=== PATIENT | male | born 2000 | race Caucasian/White ===

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

== ENCOUNTER 2019-05-20 20:24 | Emergency (ER) | payer MEDICAID, SELFPAY ==
[2019-05-20 20:31] VITALS: BP 162/70; PULSE 75; RESP 19; TEMP 36.6; O2SAT 100
--- NOTE | 2019-05-20 20:33 | ED.GENADUL_ITS ---
Discharge Plan Disposition Patient Disposition: HOME Condition: Stable Discharge Details Chief Complaint: Chest Pain Clinical Impression: Biliary colic Primary Care Provider: Kem Brown V ED Provider: Cuco Alegre Discharge Instructions Instructions: Biliary Colic (ED) Additional Instructions: Return if you have a fever, persistent vomiting, or any other acute concerns. As we discussed have ordered an outpatient ultrasound of the right upper quadrant of your abdomen for tomorrow. Please follow-up with [facility] as you have planned. Avoid fatty, fried foods and observe a bland diet. Medical Decision Making This is an otherwise healthy 18-year-old male presents with 2 weeks of intermittent episodes of postprandial epigastric pain and vomiting. He is not had fever or change to bowel movements. His exam is reassuring with mild epigastric tenderness. Differential diagnosis includes gastritis, biliary colic. Patient IV access established, referred for laboratory testing. Patient CBC is unremarkable, he does have mild elevation of AST to 39, ALT to 71, lipase is normal as is total bili. His history is concerning for biliary colic, I will order an outpatient follow-up ultrasound for the patient, he will observe a bland diet. I discussed with him indications to seek emergent reevaluation. He does have follow-up with his primary at [place]. Lab Data Lab results reviewed: Yes I reviewed the patient's lab results. Labs: Laboratory Results - last 24 hr 05/20/19 05/20/19 20:45 20:45 WBC 6.02 RBC 5.13 Hgb 15.4 Hct 43.9 MCV 85.6 MCH 30.0 MCHC 35.1 RDW 13.2 Plt Count 298 MPV 8.9 Immature Gran % 0.2 Neutrophils % 59.9 Lymphocytes % 25.9 Monocytes % 12.6 Eosinophils % 1.2 Basophils % 0.2 Absolute Neutrophils 3.61 Absolute Lymphocytes 1.56 Absolute Monocytes 0.76 H Absolute Eosinophils 0.07 Absolute Basophils 0.01 Sodium 141 Potassium 4.0 Chloride 104 Carbon Dioxide 30.2 Anion Gap 6.8 BUN 13 Creatinine 1.10 Estimated GFR/1.73 m2 >= 60.00 Glucose 88 Calcium 8.6 Total Bilirubin 0.2 AST 39 H ALT 71 H Alkaline Phosphatase 114 Total Protein 7.6 Albumin 4.2 Lipase 101 ECG Data Attestation: I personally reviewed and interpreted this ECG (s) as follows: Interpretation: Normal sinus rhythm, rate of 77, QRS is narrow, no ST segment elevation, QTc 389. HPI General Mode of arrival: ambulatory . Date/Time Provider Initiated Documentation: 05/20/19 20:30 . Limitations to Documentation: no limitations . Information obtained by: patient . History of Present Illness 18 year old M presents to the emergency department with the chief complaint of Intermittent abdominal pain and vomiting over 2 weeks, postprandial, described as mild, Quality is described as constant, and is localized to the abdomen. Patient reports no radiation. Patient started experiencing this week(s) and it has been intermittent. No relieving factors improve symptom(s), No exacerbating factors reported . Patient notes denies fever/chills. Patient did receive the following treatments prior to arrival, none Related Data Allergies Allergy/AdvReac Type Severity Reaction Status Date / Time No Known Allergies Allergy Unverified 05/20/19 20:35 General CAYLA: 4 Review of Systems Narrative: No fever. Denies shortness of breath. No recent travel. Otherwise healthy young man. 6 systems reviewed and otherwise negative [facility] Social History Smoking/Tobacco Use Status: Current every day Tobacco Type: cigarettes Alcohol Intake: current Alcohol Intake frequency: holidays/special occasions only Drug use: Never Substance use type: does not use Do you feel safe at home: Yes Do you feel safe in your relationship?: Yes Exam Narrative Exam Narrative: GEN: awake, alert, oriented 3. Pleasant, well groomed, interactive. HEAD: Normocephalic, atraumatic ENT: Mucous membranes moist, oropharynx unremarkable, External ear exam unremarkable EYES: PERRL, EOMI NECK: Full ROM, no GORDO, no menigismus CHEST/RESP: Nontender, clear to auscultation bilateral, no wheeze/rhonchi/rales CARDIOVASCULAR: RRR, no murmur, rub sincere. 2+ Rad pulse bilateral ABDOMEN: Soft, minimally tender in the epigastrium without rebound or guarding, no mass. +Bowel sounds EXT: Full ROM, no edema, no rash Neuro: Grossly normal neurologic exam, conversant, interactive. Psych: Speech fluent, thoughts congruent, affect normal
[2019-05-20 20:37] VITALS: RESP 20
[2019-05-20 21:02] LABS: Abs Immature Grans 0.01 k/cumm (0.0-0.09); Absolute Basophil Count 0.01 k/cumm (0.0-0.2); Absolute Eosinophil Count 0.07 k/cumm (0.0-0.7); Absolute Lymphocyte Count 1.56 k/cumm (1.2-3.4); Absolute Monocyte Count 0.76 k/cumm (0.11-0.7); Absolute Neutrophil Count 3.61 k/cumm (1.2-6.7); Basophils % 0.2; Eosinophils % 1.2; HCT 43.9 % (40.0-50.0); HGB 15.4 g/dL (13.5-17.5); Immature Grans % 0.2 %; Lymphocytes % 25.9; Mean Corp. HGB Concentration 35.1 g/dL (32.0-36.0); Mean Corpuscular Volume 85.6 fL (80-95); Mean Platelet Volume 8.9 fL (8.0-11.0); Monocytes % 12.6; Neutrophils % 59.9; Platelet Count 298 x1000/uL (130-400); RBC 5.13 m/cumm (4.50-6.00); RBC Distribution Width 13.2 % (11.8-14.1); White Blood Cell Count 6.02 k/cumm (4.4-10.8)
[2019-05-20 21:08] LABS: ALT 71 U/L (16-63); AST 39 U/L (15-37); Albumin 4.2 g/dL (3.4-5.0); Alkaline Phosphatase 114 U/L (46-116); Anion Gap 6.8 mmol/L (3-11); BUN 13 mg/dL (7-18); Bilirubin, Total 0.2 mg/dL (0.2-1.0); CO2 30.2 mmol/L (21.0-32.0); Calcium 8.6 mg/dL (8.5-10.1); Chloride 104 mmol/L (98-107); Glucose 88 mg/dL (74-106); Lipase 101 U/L (73-393); Sodium 141 mmol/L (136-145); Total Protein 7.6 g/dL (6.4-8.2)
[2019-05-20 21:26] VITALS: BP 130/65; PULSE 82; RESP 16; O2SAT 96
== END 2019-05-20 21:30 | disposition home or self-care (01) ==
PROVIDERS: Emergency Provider Emergency Medicine; PCP Physician Assistant Medical
DX: K80.50 Calculus of bile duct without cholangitis or cholecystitis without obstruction (principal)
CPT/HCPCS: 36415; 80053; 83690; 93005; 99284; 85025; 93010

== ENCOUNTER 2019-05-21 13:55 | Outpatient (CLI) | payer MEDICAID, SELFPAY ==
--- NOTE | 2019-05-21 15:26 | DI.US_ITS ---
EXAM: US ABDOMEN CLINICAL HISTORY: POST PRANDIAL PAIN TECHNIQUE: Ultrasound abdomen performed using standard protocol. COMPARISON: No exams were available for comparison FINDINGS: LIVER: Increased echogenicity consistent with fatty infiltration. Hepatopetal flow through the mary l vein. GALLBLADDER: No evidence of cholelithiasis. No evidence of wall thickening. No pericholecystic fluid identified. KIDNEYS: Kidneys are symmetric in size. No evidence of renal calculi. No evidence of hydronephrosis. No renal mass or cyst identified. BILIARY SYSTEM: Common bile duct measures 3 mm. No intrahepatic biliary ductal dilation. CELIS'S SIGN: Negative. PANCREAS: Obscured due to overlying bowel. SPLEEN: Not enlarged. ABDOMINAL AORTA AND IVC: Visualized portions normal caliber. ASCITES: None seen. IMPRESSION: Hepatic steatosis.
== END 2019-05-21 14:15 ==
PROVIDERS: PCP Physician Assistant Medical; Visit Provider Emergency Medicine
DX: R10.84 Generalized abdominal pain (principal); K76.0 Fatty (change of) liver, not elsewhere classified
CPT/HCPCS: 76700

== ENCOUNTER 2019-11-14 12:02 | Outpatient (REF) | payer MEDICAID, SELFPAY ==
[2019-11-18 14:04] LABS: Chlamydia Result Negative (Negative); GC Result Negative (Negative)
== END 2019-11-14 12:22 ==
LOC: NCHCN 12:02
PROVIDERS: PCP Physician Assistant Medical; Visit Provider Nurse Practitioner Family
DX: R30.0 Dysuria (principal)
CPT/HCPCS: 87491; 87591

== ENCOUNTER 2020-03-05 09:51 | Outpatient (REF) | payer MEDICAID, SELFPAY ==
[2020-03-05 21:46] LABS: Anion Gap 7.6 mmol/L (3-11); BUN 14 mg/dL (7-18); CO2 28.4 mmol/L (21.0-32.0); Chloride 103 mmol/L (98-107); Glucose 86 mg/dL (74-106); Potassium 3.6 mmol/L (3.5-5.1); Sodium 139 mmol/L (136-145); TSH 2.69 uIU/mL (0.36-3.74)
== END 2020-03-05 10:11 ==
LOC: NCHCN 09:51
PROVIDERS: PCP Physician Assistant Medical; Visit Provider Nurse Practitioner Family
DX: R53.83 Other fatigue (principal)
CPT/HCPCS: 80048; 84443

== ENCOUNTER 2020-05-07 14:03 | Outpatient (REF) | payer MEDICAID, SELFPAY ==
[2020-05-08 16:22] LABS: COVID-19 RT-PCR UVMMC Result Negative (Negative)
== END 2020-05-07 14:23 ==
LOC: NCHCN 14:03
PROVIDERS: PCP Physician Assistant Medical; Visit Provider Physician Assistant
DX: J02.9 Acute pharyngitis, unspecified (principal)
CPT/HCPCS: U0003

== ENCOUNTER 2020-05-11 16:12 | Outpatient (REF) | payer MEDICAID, SELFPAY ==
[2020-05-13 12:32] LABS: COVID-19 RT-PCR UVMMC Result Negative (Negative)
== END 2020-05-11 16:32 ==
LOC: NCHCN 16:12
PROVIDERS: PCP Physician Assistant Medical; Visit Provider Internal Medicine
DX: J06.9 Acute upper respiratory infection, unspecified (principal)
CPT/HCPCS: U0003

== ENCOUNTER 2020-10-12 16:27 | Outpatient (REF) | payer MEDICAID, SELFPAY ==
[2020-10-12 19:33] LABS: ALT 91 U/L (16-63); AST 37 U/L (15-37); Albumin 4.1 g/dL (3.4-5.0); Alkaline Phosphatase 112 U/L (46-116); Amylase 58 U/L (25-115); Anion Gap 8.5 mmol/L (3-11); BUN 12 mg/dL (7-18); Bilirubin, Total 0.3 mg/dL (0.2-1.0); CO2 29.5 mmol/L (21.0-32.0); CREATININE 1.2 mg/dL (0.70-1.30); Calcium 9.4 mg/dL (8.5-10.1); Chloride 105 mmol/L (98-107); Glucose 81 mg/dL (74-106); Lipase 92 U/L (73-393); Potassium 3.9 mmol/L (3.5-5.1); Sodium 143 mmol/L (136-145); Total Protein 7.4 g/dL (6.4-8.2)
== END 2020-10-12 16:28 | disposition home or self-care (01) ==
LOC: NCHCN 16:27
PROVIDERS: PCP Physician Assistant Medical; Visit Provider Nurse Practitioner Family
DX: R10.9 Unspecified abdominal pain (principal)
CPT/HCPCS: 80053; 83690; 82150

== ENCOUNTER 2021-08-11 18:57 | Outpatient (REF) | payer MEDICAID, SELFPAY ==
[2021-08-13 11:39] LABS: COVID-19 RT-PCR UVMMC Result Negative (Negative)
== END 2021-08-11 18:58 | disposition home or self-care (01) ==
LOC: NCHCN 18:57
PROVIDERS: PCP Physician Assistant Medical; Visit Provider Nurse Practitioner Family
DX: Z20.822 Contact with and (suspected) exposure to COVID-19 (principal)
CPT/HCPCS: U0003